=== PATIENT | male | born 1970 | race Caucasian/White ===

== ENCOUNTER 2018-05-31 08:04 | Day surgery (SDC) | payer OTHER ==
[2018-05-24 17:19] VITALS: BMI 29.6
[2018-05-31] MEDS ORDERED: PROPOFOL 20 ML ONE (09:25)
[2018-05-31 09:52] VITALS: BP 130/71; PULSE 65; TEMP 98
== END 2018-05-31 09:40 | disposition home or self-care (01) ==
LOC: FASU-ENDO 08:04
PROVIDERS: ATTEND Internal Medicine Gastroenterology
PROC: 0DJD8ZZ Inspection of Lower Intestinal Tract, Via Natural or Artificial Opening Endoscopic (ICD-10-PCS; principal; 2018-05-31 08:30)
DX: Z12.11 Encounter for screening for malignant neoplasm of colon (principal); K57.30 Diverticulosis of large intestine without perforation or abscess without bleeding

== ENCOUNTER 2021-02-10 10:51 | Emergency (ER) | payer OTHER ==
[2021-02-10 11:21] VITALS: BP 156/97; PULSE 65; TEMP 98.8; BMI 30.8
[2021-02-10] MEDS ORDERED: DIPHTH,PERTUSS(ACELL),TET 0.5 ML DISP.SYRIN IM ONE ×2 (11:22→11:25)
== END 2021-02-10 12:27 | disposition home or self-care (01) ==
LOC: FER 10:51
PROC: 3E0234Z Introduction of Serum, Toxoid and Vaccine into Muscle, Percutaneous Approach (ICD-10-PCS; principal; 2021-02-10)
DX: M79.672 Pain in left foot (principal)
CPT/HCPCS: 73630-TC-LT; 90715; 99284-25

== ENCOUNTER 2022-04-13 11:48 | Emergency (ER) | payer OTHER ==
[2022-04-13] MEDS ORDERED: FLUORESCEIN NA 1 EA STRIP ONE (12:06)
[2022-04-13] MEDS ORDERED: TETRACAINE 0.5% OPHTH SOLN 2 ML BOTTLE ONE (12:06)
[2022-04-13] MEDS ORDERED: TETRACAINE 0.5% HCL 0.6ML DROPPER.BOTTLE OS ONE (12:07)
[2022-04-13] MEDS ORDERED: FLUORESCEIN NA 1 EA STRIP OS ONE (12:07)
[2022-04-13 12:08] VITALS: BP 153/99; PULSE 68; RESP 16; TEMP 97.8; BMI 30.2
[2022-04-13] MEDS ORDERED: ERYTHROMYCIN 0.5% OPHTHALMIC OINTMENT 3.5 GM TUBE OS ONE (12:17)
[2022-04-13] MEDS ORDERED: ERYTHROMYCIN 0.5% OPHTHALMIC OINTMENT 3.5 GM TUBE ONE (12:22)
== END 2022-04-13 12:34 | disposition home or self-care (01) ==
LOC: FER 11:48
DX: S05.02XA Injury of conjunctiva and corneal abrasion without foreign body, left eye, initial encounter (principal); W22.8XXA Striking against or struck by other objects, initial encounter
CPT/HCPCS: 99283-25